=== PATIENT | female | born 1980 | race Caucasian/White ===

== ENCOUNTER 2021-05-16 06:51 | Day surgery (SDC) | payer BC ==
[~2021-05-16 06:51] MED LIST: Lactated Ringers 1,000 ML IV SCH; Lidocaine 1%/Sod Bicarbonate in NS 8.4% 1 ML Syringe IDERM PRN; Sodium Chloride 0.9% 10 ML Syringe FLUSH PRN
[2021-05-16] MEDS ORDERED: Clindamycin Phosphate in D5W 900 MG in Premix Bag 1 BAG IV ONE ×6 (07:00→08:00)
--- NOTE | 2021-05-16 07:27 | PCM.PREANE ---
Preanesthetic Assessment - Procedure Proposed Procedure: Total vaginal hysterectomy with bilateral salpingectomy - Anesthesia/Transfusion/Family Hx Anesthesia History: No Prior Anesthesia Family History of Anesthesia Reaction: No Transfusion History: No Prior Transfusion(s) Intubation History: Unknown - Review of Systems General: No Symptoms Pulmonary: No Symptoms Cardiovascular: No Symptoms Gastrointestinal: No Symptoms Neurological: No Symptoms Other: Reports: None - Physical Assessment NPO Status Date: 05/15/21 NPO Status Time: 22:00 Vital Signs: BP 122/74 HR 70 97.9 RR16 98% Height: 1.83 m Weight: 65 kg ASA Class: 2 Mental Status: Alert & Oriented x3 Airway Class: Mallampati = 2 Dentition: Reports: Normal Dentition (permanent retainer on bottom front teeth) Thyro-Mental Finger Breadths: 3 Mouth Opening Finger Breadths: 3 ROM/Head Extension: Full Lungs: Clear to Auscultation, Normal Respiratory Effort Cardiovascular: Regular Rate, Regular Rhythm, No Murmurs - Lab Values: Labs reviewed and okay to proceed; awaiting HCG urine test and will proceed if negative - Allergies Allergies/Adverse Reactions: Allergies Allergy/AdvReac Type Severity Reaction Status Date / Time Penicillins Allergy Rash Verified 05/15/21 18:59 - Acknowledgements Anesthesia Type Planned: General Anesthesia Pt an Appropriate Candidate for the Planned Anesthesia: Yes Alternatives and Risks of Anesthesia Discussed w Pt/Guardian: Yes Pt/Guardian Understands and Agrees with Anesthesia Plan: Yes PreAnesthesia Questionnaire HEENT History: Reports: Impaired Vision Cardiovascular History: Reports: Hypertension Respiratory History: Reports: None Gastrointestinal History: Reports: None Genitourinary History: Reports: None 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: Other (See Below) Other OB/BYN History: ABNORMAL UTERINE BLEEDING, MENORRHAGIA Musculoskeletal History: Reports: Other (See Below) Other Musculoskeletal History: low back pain Neurological History: Reports: Other (See Below) Other Neuro History: DEGENERATIVE JOINT DISEASE Psychiatric History: Reports: None Endocrine/Metabolic History: Reports: None Hematologic History: Reports: None Immunologic History: Reports: None Oncologic (Cancer) History: Reports: None Dermatologic History: Reports: Other (See Below) Other Dermatologic History: ARM LIPOMA - Infectious Disease History Infectious Disease History: Reports: None - Past Surgical History Head Surgeries/Procedures: Reports: None HEENT Surgical History: Reports: Oral Surgery Cardiovascular Surgical History: Reports: None Respiratory Surgical History: Reports: None GI Surgical History: Reports: None Female Surgical History: Reports: None Male Surgical History: Reports: None Endocrine Surgical History: Reports: None Neurological Surgical History: Reports: None Musculoskeletal Surgical History: Reports: ORIF, Other (See Below) Other Musculoskeletal Surgeries/Procedures:: LEFT ARM ORIF WITH LATER HARDWARE REMOVAL Oncologic Surgical History: Reports: None Dermatological Surgical History: Reports: None - SUBSTANCE USE Tobacco Use Status *Q: Former Tobacco User Tobacco Use Within Last Twelve Months: No Second Hand Smoke Exposure: No Days Per Week of Alcohol Use: 1 Number of Drinks Per Day: 1 Total Drinks Per Week: 1 Recreational Drug Use History: No - HOME MEDS Home Medications: Home Meds lisinopriL [Lisinopril] 20 mg PO DAILY 05/15/21 [History] - CURRENT (IN HOUSE) MEDS Current Meds: Current Medications Lactated Ringer's (Ringers, Lactated) 1,000 mls @ 125 mls/hr IV ASDIRECTED DIVYA Stop: 05/16/21 23:00 Lidocaine/Sodium Bicarbonate (Lidocaine 1%/Sod Bicarbonate In Ns 8.4% 1 Ml Syringe) 0.25 ml IDERM ONETIME PRN PRN Reason: Prior to IV Start Stop: 05/16/21 18:00 Sodium Chloride (Sodium Chloride 0.9% 10 Ml Syringe) 10 ml FLUSH ASDIRECTED PRN PRN Reason: Keep Vein Open Stop: 05/16/21 18:00 Discontinued Medications Clindamycin Phosphate 900 mg/ (Premix) 50 mls @ 100 mls/hr IV ONETIME ONE Stop: 05/16/21 07:29
[2021-05-16] MEDS ORDERED: Scopolamine 1.5 MG Transdermal Patch TOP ONE (07:29)
[2021-05-16] MEDS ORDERED: Lidocaine 1% with EPINEPHrine 1:100,000 20 ML MDV ONE (07:30)
[2021-05-16] MEDS ORDERED: Gentamicin 40 MG/ML 2 ML Vial ONE (07:43)
[2021-05-16] MEDS ORDERED: Clindamycin Phosphate 300 MG/2 ML SDV ONE (07:43)
[2021-05-16] MEDS ORDERED: Propofol 200 MG/20 ML SDV ONE (07:47)
[2021-05-16] MEDS ORDERED: Ketorolac 30 MG/ML SDV ONE (07:48)
[2021-05-16] MEDS ORDERED: Dexamethasone 4 MG/ML 5 ML MDV ONE (07:48)
[2021-05-16] MEDS ORDERED: fentaNYL 250 MCG/5 ML SDV ONE (07:48)
[2021-05-16] MEDS ORDERED: Rocuronium 50 MG/5 ML Vial ONE (07:48)
[2021-05-16] MEDS ORDERED: Ondansetron 4 MG/2 ML SDV ONE (07:48)
[2021-05-16] MEDS ORDERED: Midazolam 1 MG/ML 2 ML SDV ONE (07:48)
[2021-05-16] MEDS ORDERED: diphenhydrAMINE 50 MG/ML SDV ONE (07:52)
[2021-05-16] MEDS ORDERED: SODIUM CHLORIDE 0.9% IV ONE (08:00)
[2021-05-16] MEDS ORDERED: GENTAMICIN IV ONE (08:00)
[2021-05-16] MEDS ORDERED: Sodium Chloride 0.9% 100 ML ONE (08:28)
[2021-05-16] MEDS ORDERED: Dexmedetomidine 200 MCG/2 ML SDV ONE (08:29)
[2021-05-16] MEDS ORDERED: Lactated Ringers 1,000 ML ONE (08:53)
--- NOTE | 2021-05-16 09:20 | PCM.OPNOTE ---
- General Post-Op/Procedure Note Date of Surgery/Procedure: 05/16/21 Operative Procedure(s): Transvaginal hysterectomy with bilateral salpingectomy Findings: Grossly normal-appearing uterus, cervix and bilateral fallopian tubes. Grossly normal-appearing ovaries. Right ovary with suspected ovulation cyst present. Pre Op Diagnosis: Abnormal uterine bleeding, heavy menstrual bleeding and dysmenorrhea Post-Op Diagnosis: Same Anesthesia Technique: General ET Tube Primary Surgeon: Shaq Huntley Anesthesia Provider: Haydee Nichols Child Life Assistant: Jorge A Freeman Reason Child Life Assistant Was Necessary: Patient safety and reduction of morbidity and mortality Role of Child Life Assistant: Retraction for visualization Pathology: Uterus, cervix and bilateral fallopian tubes Fluid Replacement, Intraop: 1,100 Output, Urine Amount: 0 (Voided prior to procedure) EBL in mLs: 100 Complications: None Condition: Good Free Text/Narrative:: Procedure in detail: The patient was seen in the preoperative holding area and risks, benefits, indications, and alternatives of the procedure were reviewed with the patient and she desired to proceed with a trans vaginal hysterectomy and bilateral salpingectomy, possible unilateral or bilateral oophorectomy, possible laparoscopic assisted vaginal hysterectomy and possible total abdominal hysterectomy. Consents were signed. The patient was given general anesthesia with an endotracheal tube that was placed without difficulty. The patient was placed in dorsal lithotomy position using yellowfin stirrups. She was prepped and draped in normal sterile fashion. A weighted speculum was placed into the vagina and the anterior lip of the cervix was grasped with the single-tooth tenaculum. A double-tooth tenaculum was used to grasp the entirety of the cervix the single-tooth tenaculum was removed. The cervix was injected circumferentially with 0.25% lidocaine with epinephrine. The cervix was circumferentially incised with a scalpel. The bladder was dissected off the pubovesical cervical fascia anteriorly with Lyn scissors. The posterior cul-de-sac was entered sharply without difficulty using Lyn scissors. An Enseal vessel sealing device was placed over the uterosacral ligaments on the patient's left side. These were cauterized and ligated with the Enseal vessel sealing device. This was repeated on the patient's right side. Hemostasis was assured. The cardinal ligaments were then clamped on both sides with Enseal vessel sealing device, cauterized and ligated with the device. The uterine arteries and broad ligament were then serially clamped with Enseal vessel sealing device, cauterized and ligated with the device on both sides. The anterior cul-de-sac was then able to be entered using sharp dissection with Lyn scissors. The uterine fundus was then delivered through the vaginal introitus for visualization of the uterine pedicles. The cornua were clamped bilaterally with Donnie clamps and were incised using Lyn scissors and the uterus delivered. The uterine pedicles were then cauterized using Enseal vessel sealing device. The left fallopian tube was then visualized and grasped using a [place] clamp and excised using Enseal vessel sealing device. This was repeated on the right side with grasping of the fallopian tube with a [place] clamp and excised using Enseal vessel sealing device. The posterior vaginal cuff was closed with running locked sutures of 0-Monocryl. The vaginal cuff was closed with running locked stitches in a horizontal fashion with 0-Monocryl. All instruments were removed from the vagina. The patient was awoken and taken to the PACU for recovery in stable condition. Sponge, lap, needle, and instrument counts were correct x 2. Shaq Huntley MD 9:20 AM 05/16/2021
[2021-05-16] MEDS ORDERED: fentaNYL 100 MCG/2 ML SDV IVPUSH PRN (09:27)
[2021-05-16] MEDS ORDERED: HYDROmorphone 0.5 MG/0.5 ML Syringe IVPUSH PRN (09:27)
[2021-05-16] MEDS ORDERED: Ondansetron 4 MG/2 ML SDV IVPUSH PRN (09:27)
--- NOTE | 2021-05-16 09:29 | PCM.POSTAN ---
POST ANESTHESIA ASSESSMENT - MENTAL STATUS Mental Status: Alert, Oriented - VITAL SIGNS Vital Signs: Last Vital Signs Temp 97.9 F 05/16/21 07:30 Pulse 70 05/16/21 07:30 Resp 16 05/16/21 07:30 BP 122/74 05/16/21 07:30 Pulse Ox 98 05/16/21 07:30 Vital signs 122/74 HR 70 98% 97.9 RR 16 - RESPIRATORY Respiratory Status: Respiratory Rate WNL, Airway Patent, O2 Saturation Stable - CARDIOVASCULAR CV Status: Pulse Rate WNL, Blood Pressure Stable - GASTROINTESTINAL GI Status: No Symptoms - PAIN Pain Score: 0 - POST OP HYDRATION Hydration Status: Adequate & Stable
[2021-05-16] MEDS ORDERED: Acetaminophen/oxyCODONE 325-5 MG Tab PO ONE (11:30)
--- NOTE | 2021-05-16 12:23 | PCM48HPAN ---
Post Anesthesia Note - EVALUATION WITHIN 48HRS OF ANESTHETIC Vital Signs in Normal Range: Yes Patient Participated in Evaluation: Yes Respiratory Function Stable: Yes Airway Patent: Yes Cardiovascular Function Stable: Yes Hydration Status Stable: Yes Pain Control Satisfactory: Yes Nausea and Vomiting Control Satisfactory: Yes Mental Status Recovered: Yes Vital Signs: Last Vital Signs Temp 97.4 F 05/16/21 11:52 Pulse 58 L 05/16/21 11:52 Resp 14 05/16/21 11:52 BP 131/86 05/16/21 11:52 Pulse Ox 100 05/16/21 11:52
== END 2021-05-16 12:05 | disposition home or self-care (01) ==
LOC: JD.SDS 06:51
PROVIDERS: ATTEND Obstetrics & Gynecology
DX: D25.9 Leiomyoma of uterus, unspecified (principal); N80.9 Endometriosis, unspecified; N83.8 Other noninflammatory disorders of ovary, fallopian tube and broad ligament; I10 Essential (primary) hypertension; Z88.0 Allergy status to penicillin; Z79.899 Other long term (current) drug therapy; Z98.890 Other specified postprocedural states; Z87.891 Personal history of nicotine dependence
CPT/HCPCS: 58262; 81003; 81025; A9270; J1100; J1170; J1200; J1580; J1885; J2250; J2405; J2704; J3010; J3490; J7120; 00944